=== PATIENT | female | born 1985 | race Caucasian/White ===

== ENCOUNTER 2016-08-23 00:52 | Emergency (ER) | payer OTHER | END 2016-08-23 02:00 | disposition home or self-care (01) | LOC: ER 00:52 | DX: J02.9 Acute pharyngitis, unspecified (principal); R50.9 Fever, unspecified; R05 Cough; Z20.828 Contact with and (suspected) exposure to other viral communicable diseases; Z97.5 Presence of (intrauterine) contraceptive device; E03.9 Hypothyroidism, unspecified; Z79.899 Other long term (current) drug therapy; Z88.1 Allergy status to other antibiotic agents; Z88.6 Allergy status to analgesic agent | CPT/HCPCS: 87070; 87400; 87880; 99282 ==

== ENCOUNTER 2016-09-02 02:00 | Emergency (ER) | payer OTHER ==
[2016-09-02 02:34] LABS: BASO % 0.4 % (0.1-1.2); EOS # 0.1 10_X3_uL (0.0-0.4); GRAN # 7.5 10_X3_uL (1.6-6.1); GRAN % 70.3 % (34.0-71.1); HEMATOCRIT 34.7 % (34-45); HEMOGLOBIN 10.9 g/dL (11.2-15.7); LYMPH # 2.3 10_X3_uL (1.2-3.7); LYMPH % 21.4 % (19.3-51.7); MEAN CORPUSCULAR HEMOGLOBIN 22.7 pg (27.0-33.0); MEAN CORPUSCULAR HGB CONC 31.4 g/dL (32.0-36.0); MEAN CORPUSCULAR VOLUME 72.1 fL (79-95); MEAN PLATELET VOLUME 10.2 fl (7.5-11.5); MONO # 0.7 10_X3_uL (0.2-0.9); MONO % 6.9 % (4.7-12.5); PLATELET COUNT 357 x10_3/uL (182-369); RED BLOOD COUNT 4.81 x10_6/uL (3.9-5.2); WHITE BLOOD COUNT 10.6 x10_3/uL (4.0-10.0)
== END 2016-09-02 03:15 | disposition home or self-care (01) ==
LOC: ER 02:00
PROVIDERS: General Practice
DX: M23.92 Unspecified internal derangement of left knee (principal); M25.562 Pain in left knee; Z88.0 Allergy status to penicillin; Z88.1 Allergy status to other antibiotic agents; Z88.6 Allergy status to analgesic agent
CPT/HCPCS: 36415; 73564; 85025; 99283